=== PATIENT | male | born 1995 | race Hispanic/Latino ===

== ENCOUNTER 2024-08-11 06:28 | Day surgery (SDC) | payer BC ==
[~2024-08-11] VITALS: Ht 170.2 cm; Wt 98.4 kg
[~2024-08-11 06:28] MED LIST: MIRT-84 PO
[2024-08-11] MEDS ORDERED: dexmedeTOMIDine (4MCG/ML)200MCG/50ML BTL (PRECEDEX) As Ordered ONE (06:49)
[2024-08-11] MEDS ORDERED: LIDOCAINE 2% 100MG/5ML SDV (FOR ANES.) As Ordered ONE (06:50)
[2024-08-11] MEDS ORDERED: propofoL 200 MG/20 ML VIAL As Ordered ONE (06:51)
[2024-08-11] MEDS: NS 1,000 ML IV ONE (07:08)
[2024-08-11 08:00] VITALS: BP 141/77; O2SAT 99
== END 2024-08-11 08:08 | disposition home or self-care (01) ==
LOC: M OPP 06:28
PROVIDERS: ATTEND Surgery
DX: K92.1 Melena (principal); K64.1 Second degree hemorrhoids; D12.5 Benign neoplasm of sigmoid colon; F41.9 Anxiety disorder, unspecified; F32.A Depression, unspecified; Z88.8 Allergy status to other drugs, medicaments and biological substances; F17.220 Nicotine dependence, chewing tobacco, uncomplicated

== ENCOUNTER → 2024-08-18 | Outpatient (CLI) | payer BC | LOC: M SOG 14:53 | PROVIDERS: ATTEND Physician Assistant | DX: M79.645 Pain in left finger(s) (principal) ==

== ENCOUNTER → 2024-11-29 | Outpatient (REF) | payer BC ==
[2024-11-29 12:58] LABS: SEMEN APPEARANCE OPAQUE (OPAQUE); SEMEN VISCOSITY LIQUID (LIQUID); SEMEN pH 8.5 (7.0-8.0); WBC CONCENTRATION <=1 M/ml (<=1 M/ml)
== END ==
LOC: M LAB REF 12:19
PROVIDERS: ATTEND Family Medicine
DX: Z30.2 Encounter for sterilization (principal)